=== PATIENT | female | born 1980 | race Caucasian/White ===

== ENCOUNTER 2020-06-20 09:14 | Emergency (ER) | payer SELFPAY ==
[~2020-06-20 09:14] MED LIST: ALBUTEROL0.09 MG/A2 IH; ANAPROX DS550 MG PO; BACTRIM DS 8001 TA1 PO; CELEXA20 MG; CIPRO; CIPRO250 MG PO; CIPROFLOXACIN500 MG PO; CLARITIN10 MG PO; CLINDAMYCIN HC300 MG PO; DAYPRO600 M1 PO; DICLOFENAC POTA50 MG PO; DICLOFENAC SOD75 MG PO; FIORICET 325 MG1 TAB PO; HYDROCODONE BIT1 T11 PO; KEFLEX500 M1 PO; MACROBID100 M1 PO; MEDROL DOSEPAK4 MG PO; MOTRIN600 MG PO; MOTRIN800 MG PO; Motrin,Rufen800 MG PO; NAPROSYN500 MG PO; NKHM; NORCO 5-325 TA1 EACH PO; PREDNISOLONE SO10 MG PO; PREDNISONE10 MG PO; PYRIDIUM200 MG PO; Peridex 473 ML473 ML PO; ROBAXIN750 MG PO; SEPTRA DS 800 M1 TAB PO; TRAMADOL HCL50 MG PO; ULTRAM50 MG PO; ZITHROMAX Z PA250 MG PO; ZITHROMAX Z-PA250 MG PO; Zofran4 MG PO
[2020-06-20] MEDS ORDERED: IBUPROFEN600 MG PO (11:56)
== END 2020-06-20 11:55 | disposition home or self-care (01) ==
LOC: ED 09:14
DX: S92.354A Nondisplaced fracture of fifth metatarsal bone, right foot, initial encounter for closed fracture (principal); J45.909 Unspecified asthma, uncomplicated; G43.909 Migraine, unspecified, not intractable, without status migrainosus; F17.200 Nicotine dependence, unspecified, uncomplicated; Z88.8 Allergy status to other drugs, medicaments and biological substances; Z79.899 Other long term (current) drug therapy; Z90.49 Acquired absence of other specified parts of digestive tract; Z98.890 Other specified postprocedural states; Z90.89 Acquired absence of other organs; W10.8XXA Fall (on) (from) other stairs and steps, initial encounter; Y93.01 Activity, walking, marching and hiking; Y92.89 Other specified places as the place of occurrence of the external cause; Y99.8 Other external cause status